=== PATIENT | female | born 1980 ===

== ENCOUNTER 2021-10-11 11:06 | Outpatient (CLI) | payer OTHER | END 2021-10-11 11:16 | disposition home or self-care (01) | LOC: MAMO-SONO 11:06 | DX: Z12.31 Encounter for screening mammogram for malignant neoplasm of breast (principal); N63.0 Unspecified lump in unspecified breast; N64.4 Mastodynia; Z01.419 Encounter for gynecological examination (general) (routine) without abnormal findings ==

== ENCOUNTER 2023-01-26 08:09 | Outpatient (CLI) | payer OTHER | END 2023-01-26 08:17 | disposition home or self-care (01) | LOC: MAMO-SONO 08:09 | DX: N63.0 Unspecified lump in unspecified breast (principal); R10.9 Unspecified abdominal pain; Z12.31 Encounter for screening mammogram for malignant neoplasm of breast ==